=== PATIENT | male | born 1965 | race Two or more races ===

== ENCOUNTER 2024-11-06 12:39 | Inpatient (IN) | payer MEDICAID, OTHER ==
[~2024-11-06] VITALS: Ht 170.2 cm; Wt 83.2 kg
--- NOTE | 2024-11-06 12:51 | ECG ---
[facility] Test Date: 2024-11-06 Test Time: 12:44:38 Pat Name: JUAN F REY Department: ER Room: 0289T Gender: M [employer]: GP : 1965 Requested By: VINAYAK BROWN Order Number: [id number] Reading MD: Melquiades Duval Measurements Intervals [place] Rate: 124 P: 0 IL: 0 QRS: -26 QRSD: 91 T: 50 QT: 330 QTc: 474 Interpretive Statements Atrial fibrillation Inferior infarct, old Electronically Signed On 11-07-2024 18:25:11 PST by Melquiades Duval Please click the below link to view image of tracing.
--- NOTE | 2024-11-06 13:32 | DVH ---
AP portable chest HISTORY: sob Comparison: None FINDINGS: Heart size is borderline. Aorta is tortuous. No infiltrates or effusions. Degenerative ch anges in the thoracic spine IMPRESSION: 1. No acute cardiopulmonary pathology
--- NOTE | 2024-11-06 13:44 | ED.PDOC ---
History of Present Illness HPI Comments 59 Y M JANETH, presents to the ED with CC of generalized weakness. Per EMS, patient has been experiencing generalized weakness x3 days with associated symptoms of SOB and N/V/D. Patient states, that he is currently having sharp chest pain; per EMS patient was in AFIB in route and 1L bolus was given. Patient denies fever, chills, body aches, or cough. Chief Complaint: General Weakness Time Seen by MD: 13:10 Primary Care Provider: NONE Reviewed Notes: Nurses Notes, Medications, Allergies Allergies: Coded Allergies: NO KNOWN ALLERGIES (Unverified , 11/06/24) Information Source: Patient Mode of Arrival: EMS Severity: Moderate Timing: Days Duration: Since onset Prehospital treatment: None Past Medical History PAST MEDICAL HISTORY: DM Surgical History: Denies all surgeries Family History Family History: Unknown Social History Smoker: Non-Smoker Alcohol: Denies ETOH Use Drugs: Denies Drug Use Lives In: Assisted Care Constitutional: denies: chills, diaphoresis, fatigue, fever, malaise, sweats, w eakness, others EENTM: denies: blurred vision, double vision, ear bleeding, ear discharge, ear drainage, ear pain, ear ringing, eye pain, eye redness, hearing loss, mouth pain, mouth swelling, nasal discharge, nose bleeding, nose congestion, nose pain, photophobia, tearing, throat pain, throat swelling, voice changes, others Respiratory: reports: shortness of breath; denies: cough, hemoptysis, orthopnea, SOB at rest, SOB with excertion, stridor, wheezing, others Cardiovascular: reports: chest pain; denies: dizzy spells, diaphoresis, Dyspnea on exertion, edema, irregular heart beat, left arm pain, lightheadedness, palpitations, PND, syncope, others Gastrointestinal: reports: abdominal pain; denies: abdomen distended, blood streaked bowels, constipated, diarrhea, dysphagia, difficulty swallowing, hematemesis, melena, nausea, poor appetite, poor fluid intake, rectal bleeding, rectal pain, vomiting, others Genitourinary: denies: burning, dysuria, flank pain, frequency, hematuria, incontinence, penile discharge, penile sore, pain, testicle pain, testicle swelling, urgency, others Neurological: denies: dizziness, fainting, headache, left sided numbness, left sided weakness, numbness, paresthesia, pre-existing deficit, right sided numbness, right sided weakness, seizure, speech problems, tingling, tremors, weakness, others Musculoskeletal: denies: back pain, gout, joint pain, joint swelling, muscle pain, muscle stiffness, neck pain, others Integumetry: denies: bruises, change in color, change in hair/nails, dryness, laceration, lesions, lumps, rash, wounds, others Allergic/Immunocompromised: denies: Difficulty Healing, Frequent Infections, Hives, Itching, others Hematologic/Lymphatic: denies: anemia, blood clots, easy bleeding, easy bruising, swollen glands, others Endocrine: denies: excessive hunger, excessive sweating, excessive thirst, excessive urination, flushing, intolerance to cold, intolerance to heat, unexplained weight gain, unexplained weight loss, others Psychiatric: denies: anxiety, bipolar disorder, depression, hopeless, panic disorder, schizophrenia, sleepless, suicidal, others All Other Systems: Reviewed and Negative Physical Exam General Appearance: Moderate Distress, Normal HEENT: Normal ENT Inspection, Pharynx Normal, TMs Normal Neck: Full Range of Motion, Non-Tender, Normal, Normal Inspection Respiratory: Chest Non-Tender, Lungs Clear, No Accessory Muscle Use, No Respiratory Distress, Normal Breath Sounds Cardiovascular: Irregular, No Edema, No JVD, No Murmur, No Gallop, Normal Peripheral Pulses, Tachycardia Breast Exam: Deferred Gastrointestinal: No Organomegaly, Non Tender, No Pulsatile Mass, Normal Bowel Sounds, Soft Genitalia: Deferred Pelvic: Deferred Rectal: Deferred Extremities: No calf tenderness, Normal capillary refill, Normal inspection, Normal range of motion, Non-tender, No pedal edema Musculoskeletal : Apperance: Normal Neurologic: Alert, key attendant II-XII nml as Tested, No Motor Deficits, Normal Affect, Normal Mood, No Sensory Deficits Cerebellar Function: NOT DONE Reflexes: NOT DONE Skin: Dry, Normal Color, Warm Peripheral Pulses: 3+ Radial (R), 3+ Radial (L) Lymphatic: No Adenopathy Was a procedure done? Was a procedure done?: No Differential Dx Considerations may include: FAILURE TO THRIVE, SYNCOPAL EPISODE, X-Ray, Labs, Meds, VS Vital Signs Date Time Temp Pulse Resp B/P (MAP) Pulse Ox O2 Delivery O2 Flow Rate FiO2 1/6/25 12:44 124 11/06/24 12:44 97.9 108 18 123/69 (87) 89 Lab Test 11/06/24 13:34 Range/Units White Blood Count 13.8 H 4.4-10.8 10^3/uL Red Blood Count 5.08 4.5-5.90 10^6/uL Hemoglobin 15.9 13.5-17.5 g/dL Hematocrit 47.6 41.0-53.0 % Mean Corpuscular Volume 93.7 80.0-100.0 fL Mean Corpuscular Hemoglobin 31.2 28.0-32.0 pg Mean Corpuscular Hemoglobin Concent 33.3 32.0-36.0 g/dL Red Cell Distribution Width 15.0 H 11.8-14.3 % Platelet Count 280 140-450 10^3/uL Mean Platelet Volume 7.6 6.9-10.8 fL Neutrophils (%) (Auto) 70.3 37.0-80.0 % Lymphocytes (%) (Auto) 20.4 10.0-50.0 % Monocytes (%) (Auto) 6.1 0.0-12.0 % Eosinophils (%) (Auto) 2.7 0.0-7.0 % Basophils (%) (Auto) 0.5 0.0-2.0 % Neutrophils # (Auto) 9.7 H 1.6-8.6 10 ^3/uL Lymphocytes # (Auto) 2.8 0.4-5.4 10 ^3/uL Monocytes # (Auto) 0.8 0-1.3 10 ^3/uL Eosinophils # (Auto) 0.4 0-0.8 10 ^3/uL Basophils # (Auto) 0.1 0-0.2 10 ^3/uL Nucleated Red Blood Cells 0.0 % Sodium Level 137 136-145 mmol/L Potassium Level 3.6 3.5-5.1 mmol/L Chloride Level 106 98-107 mmol/L Carbon Dioxide Level 21 20-31 mmol/L Anion Gap 10 5-15 Blood Urea Nitrogen 7 L 9-23 mg/dL Creatinine 1.29 0.700-1.30 mg/dL Glomerular Filtration Rate Calc 64 >90 mL/min BUN/Creatinine Ratio 5.4 L 10.0-20.0 Serum Glucose 104 74-106 mg/dL Calcium Level 10.3 8.7-10.4 mg/dL Troponin I High Sensitivity < 3 L </=54 ng/L [address] [address] Ph: [phone] DIAGNOSTIC IMAGING Diagnostic Imaging Report : [id number] Signed PATIENT: JUAN F REY ACCT: [id number] UNIT: [id number] : 1965 LOC: ER ROOM / BED: / AGE / SEX: 59 / M ADM STATUS: REG ER SERVICE 1255 ORDERING PHYSICIAN: VINAYAK BROWN MD PROCEDURE(s): CXRP - CHEST PORTABLE REASON: sob ORDER NUMBER(s): [id number], ACCESSION NUMBER(s): [id number] AP portable chest HISTORY: sob Comparison: None FINDINGS: Heart size is borderline. Aorta is tortuous. No infiltrates or effusions. Degenerative changes in the thoracic spine IMPRESSION: 1. No acute cardiopulmonary pathology ATED BY: ESVIN KEYES MD DICTATED DATE/TIME: 11/06/24 1330 SIGNED BY: ESVIN KEYES MD SIGNED DATE/TIME: 11/06/24 133 CC: Patient alert. Complaining of chest pain. EKG shows atrial fibrillation. Vitals stable. Answering all questions. Continues to have chest pain. Was given aspirin. Cardiac marker within normal limits. Saturation was on the low side. Was placed on oxygen. Explained to the patient. Continue cardiac monitoring. Time of 1ST Reevaluation: 13:40 Reevaluation 1ST: Unchanged Patient Education/Counseling: Diagnosis, Treatment Family Education/Counseling: No Family Present Departure 1 Departure Time of Disposition: 16:19 Impression: Primary Impression: Chest pain of unknown etiology Additional Impression: Atrial fibrillation Qualified Codes: I48.0 - Paroxysmal atrial fibrillation Disposition: ADMITTED INPATIENT Admit to: Med Surg Condition: Guarded Critical Care Note Critical Care Time?: Yes (45 min-critical care time only) Stability Stability form required: No Heart Score Heart Score: Heart Score Response (Comments) Value History Slightly Suspicious 0 EKG Normal 0 Age 45-64 1 Risk Factors >3 or Hx ASHD 2 Troponin Normal limit 0 Total 3 I personally scribed for VINAYAK BROWN MD ([email or web address]) on 11/06/24 at 13:44. Electronically submitted by Christin Sharp [email or web address]). I personally scribed for VINAYAK BROWN MD ([email or web address]) on 11/06/24 at 13:58. Electronically submitted by Christin Sharp ([email or web address]). I personally scribed for VINAYAK BROWN MD ([email or web address]) on 11/06/24 at 14:30. Electronically submitted by Christin Sharp ([email or web address]). VINAYAK BROWN MD Nov 06, 2024 13:44
[2024-11-06 14:18] LABS: Basophils # (auto) 0.1 10 ^3/uL (0-0.2); Basophils % (auto) 0.5 % (0.0-2.0); Eosinophils # (auto) 0.4 10 ^3/uL (0-0.8); Eosinophils % (auto) 2.7 % (0.0-7.0); Hematocrit 47.6 % (41.0-53.0); Hemoglobin 15.9 g/dL (13.5-17.5); Lymphocytes # (auto) 2.8 10 ^3/uL (0.4-5.4); Lymphocytes % (auto) 20.4 % (10.0-50.0); Mean Corpuscular Hemoglobin 31.2 pg (28.0-32.0); Mean Corpuscular Hgb Conc. 33.3 g/dL (32.0-36.0); Mean Corpuscular Volume 93.7 fL (80.0-100.0); Monocytes # (auto) 0.8 10 ^3/uL (0-1.3); Monocytes % (auto) 6.1 % (0.0-12.0); Neutrophils # (auto) 9.7 10 ^3/uL (1.6-8.6); Neutrophils % (auto) 70.3 % (37.0-80.0); Platelet Count (auto) 280 10^3/uL (140-450); Red Blood Cells 5.08 10^6/uL (4.5-5.90); White Blood Cell 13.8 10^3/uL (4.4-10.8)
[2024-11-06 14:24] LABS: Chloride 106 mmol/L (98-107); Potassium 3.6 mmol/L (3.5-5.1); Sodium 137 mmol/L (136-145)
[2024-11-06 14:25] LABS: Anion Gap 10 (5-15); Calcium 10.3 mg/dL (8.7-10.4); Carbon Dioxide 21 mmol/L (20-31)
[2024-11-06 14:30] LABS: BUN/Creatinine Ratio 5.4 (10.0-20.0); Glucose 104 mg/dL (74-106)
[2024-11-06 14:33] LABS: Blood Urea Nitrogen 7 mg/dL (9-23)
[2024-11-06] MEDS ORDERED: MORPHINE SULFATE INJ 2 MG/ml SYRG IV PRN (19:30)
[2024-11-06] MEDS ORDERED: NITROGLYCERIN 0.4 MG SL TAB SL PRN (19:30)
[2024-11-06] MEDS ORDERED: TEMAZEPAM 15 MG CAP PO PRN (19:30)
[2024-11-06] MEDS ORDERED: ONDANSETRON HCL 4 MG/2 ML VIAL IV PRN (19:30)
[2024-11-06] MEDS: ASPirin 325 MG TAB PO ONE (20:54)
[2024-11-06] MEDS: dilTIAZem 25 MG/5 ML VIAL IV ONE (20:55)
--- NOTE | 2024-11-06 21:45 | DVH ---
Exam: CT CT AB PEL WO CON-NO ORAL OR IV History: MD order Comparison Study: None available at time of dictation. TECHNIQUE: Multidetector CT of the abdomen and pelvis without contrast. Axial, coronal and sagittal m ultiplanar reformats were obtained from the axial data set by the technologist. Radiation Dose Information: CT Dose: CTDI volume is 13.35 mGy. Dose-length product is 671.28 mGy*cm FINDINGS: The lung bases are clear. Partially visualized heart is normal in size. Trace pericardial effusion. Mild hepatomegaly. Otherwise, liver, spleen, and adrenal glands unremarkable. Possible sludge or sma ll stones within the gallbladder. Otherwise, the gallbladder is unremarkable. Questionable minimal f at stranding adjacent to the pancreatic head. Kidneys, and ureters are unremarkable. Anterior asymmetric wall thickening of the urinary bladder. Pr ostate measures 3 x 4.4 x 3.1 cm with calcifications. Mild wall thickening of the distal esophagus. Mild wall thickening of the stomach and duodenum. The r emainder of the small bowel loops unremarkable. Appendix is unremarkable. There is liquid stool withi n the colon. No evidence of aortic aneurysm. Mild atherosclerotic calcification of the aorta. No significant lymphadenopathy. Small fat containing umbilical hernia with small fat containing left inguinal hernia. No destructive osseous lesions noted. Diffuse demineralization. IMPRESSION: Questionable minimal fat stranding adjacent to the pancreatic head. Recommend correlation with lipas e Asymmetric anterior urinary bladder wall thickening correlate with urinalysis for possible cystitis w ith neoplasm not excluded. Mild wall thickening of the distal esophagus, stomach and duodenal which may represent esophagitis an d gastroduodenitis respectively. Liquid stool within the colon. Correlate for diarrheal state. Possible sludge/small gallstones within the gallbladder with no CT evidence of acute cholecystitis. Additional findings as above.
[2024-11-07] MEDS: ATORVASTATIN 20 MG TAB PO SCH (01:14)
[2024-11-07] MEDS ORDERED: DEXTROSE (50%) 50ML SYRG IV PRN (03:45)
--- NOTE | 2024-11-07 03:48 | DVHHP2 ---
History of Present Illness Reason for Visit: Chest pain History of Present Illness 51-year-old male presents for evaluation of chest pain. He reports a three day history of generalized weakness with associated nausea, vomiting and for the past one day he developed left-sided sharp nonradiating chest pain. Denies shortness or breath. No cough or fever. No other acute complaints reported. Past Medical History Diabetes mellitus, atrial fibrillation Past Surgical History Denies Family History Noncontributory Smoke: No ALCOHOL: none Drugs: None Lives: with Family Review of Systems Review of Systems Review of systems are currently negative otherwise addressed in HPI. Allergies: Coded Allergies: NO KNOWN ALLERGIES (Unverified , 11/06/24) Medications Current Medications Medications Dose Ordered Sig/Chinedu Route Start Time Stop Time Status Last Admin Dose Admin Aspirin 81 mg DAILY PO 11/07/24 10:00 Atorvastatin Calcium 10 mg HS PO 11/06/24 22:00 11/07/24 01:14 10 MG Temazepam 15 mg QHSP PRN PO 11/06/24 19:30 Ondansetron HCl 4 mg Q4HP PRN IV 11/06/24 19:30 Enoxaparin Sodium 40 mg DAILY SC 11/07/24 10:00 Acetaminophen 650 mg Q6HP PRN PO 11/06/24 19:30 Nitroglycerin 0.4 mg Q5MINP PRN SL 11/06/24 19:30 Morphine Sulfate 2 mg Q30M PRN IV 11/06/24 19:30 Exam Vital Signs Vital Signs Date Time Temp Pulse Resp B/P (MAP) Pulse Ox O2 Delivery O2 Flow Rate FiO2 11/06/24 12:44 124 11/06/24 12:44 97.9 18 123/69 (87) 89 Exam Gen: 59-year-old in mild distress Skin: Warm, dry, normal color and texture, no rash. HEENT: Normocephalic atraumatic, mucous membranes moist and pink. Neck: Cervical and supraclavicular nodes normal without enlargement, trachea is midline, thyroid gland is normal without masses. Pulmonary: Clear to auscultation and percussion bilaterally. Cardiac: Regular rate and rhythm. No murmur Abdomen: Soft, nontender, nondistended, bowel sounds present all 4 quadrants, no guarding, no rigidity, no organomegaly. Extremities: No cyanosis, clubbing, no edema Neuro: Cranial nerves II through XII grossly intact, normal affect and speech, no focal motor deficits. Labs/Xrays ORDERING PHYSICIAN: ABBIE ALFREDO PROCEDURE(s): ABPL - CT AB PEL WO CON-NO ORAL OR IV REASON: order ORDER NUMBER(s): [id number], ACCESSION NUMBER(s): [id number] Exam: CT CT AB PEL WO CON-NO ORAL OR IV History: order Comparison Study: None available at time of dictation. TECHNIQUE: Multidetector CT of the abdomen and pelvis without contrast. Axial, coronal and sagittal multiplanar reformats were obtained from the axial data set by the technologist. Radiation Dose Information: CT Dose: CTDI volume is 13.35 mGy. Dose-length product is 671.28 mGy*cm FINDINGS: The lung bases are clear. Partially visualized heart is normal in size. Trace pericardial effusion. Mild hepatomegaly. Otherwise, liver, spleen, and adrenal glands unremarkable. Possible sludge or small stones within the gallbladder. Otherwise, the gallbladder is unremarkable. Questionable minimal fat stranding adjacent to the pancreatic head. Kidneys, and ureters are unremarkable. Anterior asymmetric wall thickening of the urinary bladder. Prostate measures 3 x 4.4 x 3.1 cm with calcifications. Mild wall thickening of the distal esophagus. Mild wall thickening of the stomach and duodenum. The remainder of the small bowel loops unremarkable. Appendix is unremarkable. There is liquid stool within the colon. No evidence of aortic aneurysm. Mild atherosclerotic calcification of the aorta. No significant lymphadenopathy. Small fat containing umbilical hernia with small fat containing left inguinal hernia. No destructive osseous lesions noted. Diffuse demineralization. IMPRESSION: Questionable minimal fat stranding adjacent to the pancreatic head. Recommend correlation with lipase Asymmetric anterior urinary bladder wall thickening correlate with urinalysis for possible cystitis with neoplasm not excluded. Mild wall thickening of the distal esophagus, stomach and duodenal which may represent esophagitis and gastroduodenitis respectively. Liquid stool within the colon. Correlate for diarrheal state. Possible sludge/small gallstones within the gallbladder with no CT evidence of acute cholecystitis. Additional findings as above. Labs Test 11/06/24 19:43 11/06/24 13:34 Range/Units Troponin I High Sensitivity < 3 L </=54 ng/L Lipase 34 12-53 U/L White Blood Count 13.8 H 4.4-10.8 10^3/uL Red Blood Count 5.08 4.5-5.90 10^6/uL Hemoglobin 15.9 13.5-17.5 g/dL Hematocrit 47.6 41.0-53.0 % Mean Corpuscular Volume 93.7 80.0-100.0 fL Mean Corpuscular Hemoglobin 31.2 28.0-32.0 pg Mean Corpuscular Hemoglobin Concent 33.3 32.0-36.0 g/dL Red Cell Distribution Width 15.0 H 11.8-14.3 % Platelet Count 280 140-450 10^3/uL Mean Platelet Volume 7.6 6.9-10.8 fL Neutrophils (%) (Auto) 70.3 37.0-80.0 % Lymphocytes (%) (Auto) 20.4 10.0-50.0 % Monocytes (%) (Auto) 6.1 0.0-12.0 % Eosinophils (%) (Auto) 2.7 0.0-7.0 % Basophils (%) (Auto) 0.5 0.0-2.0 % Neutrophils # (Auto) 9.7 H 1.6-8.6 10 ^3/uL Lymphocytes # (Auto) 2.8 0.4-5.4 10 ^3/uL Monocytes # (Auto) 0.8 0-1.3 10 ^3/uL Eosinophils # (Auto) 0.4 0-0.8 10 ^3/uL Basophils # (Auto) 0.1 0-0.2 10 ^3/uL Nucleated Red Blood Cells 0.0 % Sodium Level 137 136-145 mmol/L Potassium Level 3.6 3.5-5.1 mmol/L Chloride Level 106 98-107 mmol/L Carbon Dioxide Level 21 20-31 mmol/L Anion Gap 10 5-15 Blood Urea Nitrogen 7 L 9-23 mg/dL Creatinine 1.29 0.700-1.30 mg/dL Glomerular Filtration Rate Calc 64 >90 mL/min BUN/Creatinine Ratio 5.4 L 10.0-20.0 Serum Glucose 104 74-106 mg/dL Calcium Level 10.3 8.7-10.4 mg/dL Assessment/Plan Assessment/Plan Assessment Chest pain, etiology undetermined Atrial fibrillation Leukocytosis Abdominal pain Plan Admit the patient to telemetry to the hospitalist Echocardiogram pending Resume home medications Continue treatment per orders. Plan discussed with: Patient My Orders Orders - ABBIE ALFREDO Procedure Category Date Status Time Aspirin Tablet PHA 11/07/24 In Process 10:00 Atorvastatin (Lipitor) PHA 11/06/24 In Process 22:00 * Cardiology Consult CONS 11/06/24 Transmitted 19:17 Basic Metabolic Panel LAB 11/07/24 Logged 04:00 Admit ADMIT 11/06/24 Transmitted 19:17 Temazepam (Restoril) PHA 11/06/24 In Process 19:30 Ondansetron Hcl PHA 11/06/24 In Process (Zofran) 19:30 Enoxaparin Sodium PHA 11/07/24 In Process (Lovenox) 10:00 Cardiac DIET 11/07/24 Transmitted Diet-2gna,Lofat,Lochol Breakfast Echo 2d Mode Cardiac US 11/06/24 Logged DOP 19:17 Condition: Fair GENIA 11/06/24 In Process 19:17 Acetaminophen Tablet PHA 11/06/24 In Process (Tylenol Tablet) 19:30 Bedrest With Bathroom GENIA 11/06/24 In Process Privileg 19:17 Nitroglycerin PHA 11/06/24 In Process Sublingual (Ntrostat 19:30 Morphine Sulfate PHA 11/06/24 In Process Injection 19:30 Stat Ekg For Chest GENIA 11/06/24 In Process Pain 19:17 Notify Md Of Changes GENIA 11/06/24 In Process From Base 19:17 Practice Billing Associate For [facility] 11/06/24 In Process 24 Hours 19:17 Emergency Dysrhythmia [facility] 11/06/24 In Process Protocol 19:17 Rhythm Strips Once [facility] 11/06/24 In Process Every Shift 19:17 Oxygen By Nasal RT 11/06/24 Transmitted Cannula 19:17 Ct Ab Pel Wo Con-No CT 11/06/24 Resulted Oral Or Iv 20:49 Date of Service: Nov 06, 2024 Billing Provider: ABBIE ALFREDO Common Visit Codes: [id number] INP/OBS CARE (HIGH) ABBIE ALFREDO Nov 07, 2024 03:48
[2024-11-07 06:28] LABS: Anion Gap 11 (5-15); Carbon Dioxide 21 mmol/L (20-31); Chloride 105 mmol/L (98-107); Sodium 137 mmol/L (136-145)
[2024-11-07 06:34] LABS: BUN/Creatinine Ratio 8.3 (10.0-20.0); Blood Urea Nitrogen 9 mg/dL (9-23)
[2024-11-07 06:35] LABS: Calcium 10.8 mg/dL (8.7-10.4); Glucose 113 mg/dL (74-106); Potassium 3.3 mmol/L (3.5-5.1)
[2024-11-07] MEDS: ACCU-CHEK COMFORT CURVE STRIP VI SCH (07:00)
[2024-11-07 07:30] VITALS: PULSE 108; RESP 17; O2SAT 97
[2024-11-07] MEDS: InsuLIN REG 1unit/0.01ml Soln (100units/ml) SC SCH (08:16)
--- NOTE | 2024-11-07 09:50 | DVHINCON2 ---
Date Seen: Nov 07, 2024 Referring Physician HALINA Cruz Reason for Consultation Chest pain, AFib History of Present Illness This is a 59-year-old male patient who presents to the emergency room with multiple chief complaints of generalized weakness, decreased appetite, diarrhea, shortness of breath, and chest pain. The patient reports that the first symptom of decreased appetite began five days ago. He reported that he noticed no interest in food about five days ago followed by diarrhea and generalized weakness. Yesterday, the patient reports new onset chest pain while moving. He reports he is new to the area and was moving his personal belongings from [place] to [place], when he noticed the chest pain began. He describes the pain as unprovoked, sharp in nature, intermittent, left-sided and nonradiating. Associated symptoms include shortness of breath. The patient reports that the neighbor told him that he did not look good and decided to call EMS. Upon EMS arrival, the patient was noted to be in atrial fibrillation with rapid ventricular response. He was provided with a 1 L fluid bolus. Upon emergency room arrival, a twelve lead electrocardiogram was obtained and reveals atrial fibrillation with heart rate 124. Initial troponin level was negative. Significant past medical history includes atrial fibrillation (on Xarelto), hypertension, hyperlipidemia, type 2 diabetes mellitus, thyroid disease, asthma, and PTSD. The patient denies following up with a erp pm in the outpatient setting. Past Medical History Past medical history reviewed. No other significant than mentioned above. Past Surgical History Hernia repair Family History Family history reviewed. Social History Patient admits to vaping daily Patient denies any illicit drug use Patient denies any alcohol use Allergies: Coded Allergies: NO KNOWN ALLERGIES (Unverified , 11/06/24) Current Medications Current Medications Medications (Trade) Dose Ordered Sig/Chinedu Route PRN Reason Start Time Stop Time Status Last Admin Aspirin 81 mg DAILY PO 11/07/24 10:00 Atorvastatin Calcium (Lipitor) 10 mg HS PO 11/06/24 22:00 11/07/24 01:14 Temazepam (Restoril) 15 mg QHSP PRN PO FOR INSOMNIA 11/06/24 19:30 Ondansetron HCl (Zofran) 4 mg Q4HP PRN IV NAUSEA / VOMITING 11/06/24 19:30 Enoxaparin Sodium (Lovenox) 40 mg DAILY SC 11/07/24 10:00 Acetaminophen (Tylenol Tablet) 650 mg Q6HP PRN PO PAIN SCALE 1-3 OR TEMP>100.4 11/06/24 19:30 Nitroglycerin (Ntrostat Sublingual) 0.4 mg Q5MINP PRN SL FOR CHEST PAIN 11/06/24 19:30 Morphine Sulfate 2 mg Q30M PRN IV FOR CHEST PAIN 11/06/24 19:30 Diltiazem HCl (Cardizem LA Capsule) 180 mg DAILY PO 11/07/24 10:00 Diagnostic Test (Pha) (Accu-Chek Comfort Curve T) 1 strip ACHS 11/07/24 07:00 11/07/24 07:00 Insulin Human Regular (InsuLIN R) ACHS SC 11/07/24 07:00 11/07/24 08:16 Dextrose 50 ml UD PRN IV Blood Sugar LESS THAN 60 11/07/24 03:45 Ceftriaxone Sodium 50 ml @ 100 mls/hr DAILY@09 IV 11/07/24 09:00 Review of Systems Constitutional: Generalized weakness Ears, Nose, & Throat: No symptom reported Eyes: No symptom reported Neurological: No symptoms reported Pulmonary/Respiratory: Shortness of breath Cardiovascular: Chest pain Gastrointestinal: Diarrhea Genitourinary: No symptom reported Musculoskeletal: No symptom reported Skin: No symptom reported Psychiatric: No symptom reported Endocrine: No symptom reported Hematologic/Lymphatic: No symptom reported Vital Signs Vital Signs Date Time Temp Pulse Resp B/P (MAP) Pulse Ox O2 Delivery O2 Flow Rate FiO2 11/07/24 08:35 97.9 108 17 163/89 (113) 97 97.9 11/07/24 07:30 Room Air* 0 21 Physical Exam General Appearance: Cooperative. Well-developed. Well-nourished. No acute distress. Pulmonary/Respiratory: Clear, bilateral breaths sounds. Cardiovascular/Chest: Irregular rate and rhythm. Peripheral Pulses: 2+ Radial (R). 2+ Radial (L). 2+ Pedal (R). 2+ Pedal (L) Abdominal Exam: Normal bowel sounds. Ankle Exam: Trace bilateral ankle edema Lower extremities: Trace nonpitting bilateral lower extremity edema Neuro/Mental Status: A/OX4, coherent. Thoughts/Psych: Normal thought pattern. Appropriate mood and affect. Good judgm ent and insight. Appearance: No acute distress. Skin Exam: Normal inspection. Normal color. Warm and dry. Labs/Diagnostic Data Labs Test 11/07/24 05:59 11/06/24 19:43 11/06/24 13:34 Range/Units Sodium Level 137 136-145 mmol/L Potassium Level 3.3 L 3.5-5.1 mmol/L Chloride Level 105 98-107 mmol/L Carbon Dioxide Level 21 20-31 mmol/L Anion Gap 11 5-15 Blood Urea Nitrogen 9 9-23 mg/dL Creatinine 1.08 0.700-1.30 mg/dL Glomerular Filtration Rate Calc 79 >90 mL/min BUN/Creatinine Ratio 8.3 L 10.0-20.0 Serum Glucose 113 H 74-106 mg/dL Calcium Level 10.8 H 8.7-10.4 mg/dL Troponin I High Sensitivity < 3 L </=54 ng/L Lipase 34 12-53 U/L White Blood Count 13.8 H 4.4-10.8 10^3/uL Red Blood Count 5.08 4.5-5.90 10^6/uL Hemoglobin 15.9 13.5-17.5 g/dL Hematocrit 47.6 41.0-53.0 % Mean Corpuscular Volume 93.7 80.0-100.0 fL Mean Corpuscular Hemoglobin 31.2 28.0-32.0 pg Mean Corpuscular Hemoglobin Concent 33.3 32.0-36.0 g/dL Red Cell Distribution Width 15.0 H 11.8-14.3 % Platelet Count 280 140-450 10^3/uL Mean Platelet Volume 7.6 6.9-10.8 fL Neutrophils (%) (Auto) 70.3 37.0-80.0 % Lymphocytes (%) (Auto) 20.4 10.0-50.0 % Monocytes (%) (Auto) 6.1 0.0-12.0 % Eosinophils (%) (Auto) 2.7 0.0-7.0 % Basophils (%) (Auto) 0.5 0.0-2.0 % Neutrophils # (Auto) 9.7 H 1.6-8.6 10 ^3/uL Lymphocytes # (Auto) 2.8 0.4-5.4 10 ^3/uL Monocytes # (Auto) 0.8 0-1.3 10 ^3/uL Eosinophils # (Auto) 0.4 0-0.8 10 ^3/uL Basophils # (Auto) 0.1 0-0.2 10 ^3/uL Nucleated Red Blood Cells 0.0 % Assessment Atrial fibrillation with a rapid ventricular response (on Xarelto) Rule out structural heart disease Hypertension Hyperlipidemia Hypokalemia Type 2 diabetes mellitus Thyroid disease Asthma Plan/Recommendation We will continue with the following plan/recommendations (Dr. Duval): * Echocardiogram to evaluate cardiac function * [id number] VASc score: 2 points, HAS-BLED: 1 point * Therapeutic Lovenox while inpatient, transition back to Xarelto when appropriate * Home dose diltiazem for rate control * BP control * Lipid-lowering agent * Monitor and replete electrolytes as needed, keep potassium greater than four and magnesium greater than two Case discussed with . Thank you for allowing us to care for this patient. Please call with any questions or concerns. Critical care time spent: 43 minutes This medical document was created using an electronic medical record system with voice recognition software and computerized dictation system. Although this document has been carefully reviewed, there might still be some phonetic and typographical errors. Occasional wrong-word or ``sound-alike substitutions may have occurred due to the inherent limitations of voice recognition software. These areas are purely typographical due to imperfections of the software programs and do not reflect any compromise in the patient's medical care. Please read the chart carefully and recognize, using context, where these substitutions have occurred. Plan discussed with: Patient NYHA Physical activity limitations: NA Date of Service: Nov 07, 2024 Billing Provider: IBRAHIMA ALAN Cardiology Common Codes: 69144-OGZPFMT INP/OBS CARE (High) Cardiology Consultation Codes: [id number] CONSULT <45MIN IBRAHIMA ALAN Nov 07, 2024 09:50
[2024-11-07] MEDS: cefTRIAXone 1GM/50ML D5W 50 ML IV SCH (09:57)
[2024-11-07 10:00] VITALS: PULSE 109; RESP 18; O2SAT 97
[2024-11-07] MEDS ORDERED: MAALOX PLUS or MAALOX 30 ML PO PRN (10:30)
[2024-11-07] MEDS: ASPirin 81 mg TAB PO SCH (10:46)
[2024-11-07] MEDS: dilTIAZem HCL 180MG ER CAP PO SCH (10:46)
[2024-11-07] MEDS: ENOXAPARIN SOD 40 MG/0.4 ML SYRINGE SC SCH (10:47)
[2024-11-07 11:22] LABS: Magnesium 1.7 mg/dL (1.6-2.6)
[2024-11-07] MEDS: POTASSIUM EFFERVESENT TAB 25 MEQ PO ONE (12:08)
[2024-11-07] MEDS: hydrOXYzine 25 MG TAB or CAP PO ONE (12:11)
[2024-11-07] MEDS: FAMOTIDINE 20 MG TAB PO ONE (12:12)
[2024-11-07] MEDS: clonazePAM 0.5 MG TAB PO ONE (12:13)
[2024-11-07] MEDS: SODIUM CHLORIDE 0.9% 500 ML IV ONE (12:14)
[2024-11-07 12:47] LABS: Amphetamine Screen, Urine Neg (NEGATIVE); Barbiturate Scree,Urine Neg (NEGATIVE); Benzodiazephine Screen, Urine Neg (NEGATIVE); Cannabinoid Screen, Urine Neg (NEGATIVE); Cocaine Screen, Urine Neg (NEGATIVE); Opiate Scree,Urine Neg (NEGATIVE); Phencyclidine Screen, Urine Neg (NEGATIVE)
[2024-11-07 15:05] LABS: Free T3 3.35 pg/mL (2.3-4.2); Free T4 (Free Thyroxine) 1.43 ng/dL (0.89-1.76)
--- NOTE | 2024-11-07 15:39 | DVHPN2 ---
Assessment/Plan Assessment/Plan Progress note Subjective 59 M with PTSD anxiety and afib on xarelto with 3 days of vomitting and diarrhea admitted for chest pain. Patient is dehydrated, reported eating questionable avocado prior to symptoms onset. Compliant with meds however no oral intake the past couple of days. Objective Physical exam Alert oriented x3 irregular, tachycardic clear breath sounds abdomen soft, mildly tender no LE edema Lab K 3.3 Ca 10.2 WBC 14 EKG old inferior infarct? Imaging cxr clear Assessment and plan Acute gastroenteritis, unknown etiology Afib with RVR 2/2 dehydration PTSD anxiety disorder hypokalemia hypercalcemia euthyroid sick vs new hypothyroidism iv bolus and maintenance replete lytes cardio consult appreciated c/w lovenox therapeutic resume home emds advance diet as tolerated stool studies pepcid, maalox Maintain potassium of 4, phosphate of 3 and magnesium of 2 Diet advance as tolerated DVT prophylaxis on lovenox therapeutic Plan discussed with: Patient My Orders Orders - DI JONES MD Procedure Category Date Status Time Hydroxyzine Oral PHA 11/07/24 In Process (Vistaril Oral) 10:30 Famotidine Tablet PHA 11/08/24 In Process (Pepcid Tablet) 10:00 Alum & Mag PHA 11/07/24 In Process Hydrox-Simethicone 10:30 Trazodone Hcl PHA 11/07/24 Verified (Desyrel) 22:00 Buspirone Hcl Tablet PHA 11/07/24 Verified (Buspar Tablet) 22:00 Date of Service: Nov 07, 2024 Billing Provider: DI JONES MD Common Visit Codes: [id number] INP/OBS CARE(HIGH) DI JONES MD Nov 07, 2024 15:39
[2024-11-07] MEDS ORDERED: LOPERAMIDE 1 mg/7.5ml ORAL soln PO PRN (17:00)
[2024-11-07] MEDS ORDERED: ACETAMINOPHEN 325 MG TAB PO PRN (17:00)
--- NOTE | 2024-11-07 17:15 | DVHSR ---
APPROVED REPORT EXAM: Two-dimensional and M-mode echocardiogram with Doppler and color Doppler. Blood Pressure: 163/89 mmHg INDICATION Chest Pain RISK FACTORS Height: 70, Weight: 190 DIMENSIONS LVDd3.6 (3.8-5.7cm)LA (2D)4.3 (1.9-4.0cm)Aortic Root (2.0-3.7cm) LVDs2.3 (2.5-4.0cm)LA (MM) (1.9-4.0cm)Aortic Cusp Exc (1.5-2.0cm) EF (%) 68.0 (55-70%)Rt. Atrium3.6 (1.9-4.0cm)Asc. Aorta cm Mitral Valve MitralMitral Stenosis E/A ratio0.02D MVAcm2 Aortic Valve Aortic ValveAortic Stenosis V10.85m/Kings Mean GR.3mmHg V21.04m/Kings Peak GR.4mmHg Other Information Technically limited study due to body habitus and high heart rate. Conclusion lvef 65% by visual estimate RV enlarged , normal function left atrium enlarged mild
[2024-11-07 17:46] VITALS: BP 105/84; PULSE 111; RESP 19; TEMP 98.1; O2SAT 98
[2024-11-07] MEDS: MAGNESIUM SULFATE 1GM/100ML 100 ML IV ONE (18:54)
[2024-11-07 20:00] VITALS: PULSE 120; PULSE 132; RESP 20; O2SAT 98
[2024-11-07] MEDS: ACETAMINOPHEN 325 MG TAB PO PRN (20:39)
[2024-11-07] MEDS: busPIRone HCL 10 MG TAB PO SCH (20:40)
[2024-11-07] MEDS: traZODone HCL 50 MG TAB PO SCH (20:40)
[2024-11-07] MEDS: ENOXAPARIN SOD 100 MG/1 ML SYRINGE SC SCH (20:42)
[2024-11-07 21:00] VITALS: BP 141/94; PULSE 120; RESP 20; TEMP 97.6; O2SAT 98
[2024-11-08] VITALS (9 sets, daily range): BP systolic 116–145; BP diastolic 73–97; PULSE 71–108; RESP 17–22; TEMP 97.4–98.5; O2SAT 96–99
[2024-11-08 07:28] LABS: Basophils # (auto) 0.1 10 ^3/uL (0-0.2); Basophils % (auto) 0.8 % (0.0-2.0); Eosinophils # (auto) 0.4 10 ^3/uL (0-0.8); Eosinophils % (auto) 4.3 % (0.0-7.0); Hematocrit 45.9 % (41.0-53.0); Hemoglobin 15.8 g/dL (13.5-17.5); Lymphocytes # (auto) 3.2 10 ^3/uL (0.4-5.4); Lymphocytes % (auto) 35.9 % (10.0-50.0); Mean Corpuscular Hemoglobin 32.3 pg (28.0-32.0); Mean Corpuscular Hgb Conc. 34.5 g/dL (32.0-36.0); Mean Corpuscular Volume 93.5 fL (80.0-100.0); Monocytes # (auto) 0.6 10 ^3/uL (0-1.3); Monocytes % (auto) 6.9 % (0.0-12.0); Neutrophils # (auto) 4.7 10 ^3/uL (1.6-8.6); Neutrophils % (auto) 52.1 % (37.0-80.0); Nucleated Red Blood Cells % 0.1 %; Platelet Count (auto) 244 10^3/uL (140-450); Red Blood Cells 4.91 10^6/uL (4.5-5.90); Red Cell Distribution Width 14.9 % (11.8-14.3); White Blood Cell 8.9 10^3/uL (4.4-10.8)
[2024-11-08 07:41] LABS: Potassium 3.5 mmol/L (3.5-5.1); Sodium 142 mmol/L (136-145)
[2024-11-08 07:42] LABS: Anion Gap 8 (5-15); Calcium 9.9 mg/dL (8.7-10.4); Carbon Dioxide 25 mmol/L (20-31); Chloride 109 mmol/L (98-107)
[2024-11-08 07:47] LABS: Blood Urea Nitrogen 11 mg/dL (9-23); Glucose 104 mg/dL (74-106)
[2024-11-08 07:49] LABS: Phosphorus 3.3 mg/dL (2.4-5.1)
[2024-11-08] MEDS: clonazePAM 0.5 MG TAB PO ONE (08:54)
[2024-11-08] MEDS: FAMOTIDINE 20 MG TAB PO SCH (08:55)
[2024-11-08] MEDS: POTASSIUM EFFERVESENT TAB 25 MEQ PO ONE (10:36)
[2024-11-08] MEDS: cefTRIAXone 1GM/50ML D5W 50 ML IV ONE (10:36)
[2024-11-08] MEDS: hydrOXYzine 25 MG TAB or CAP PO PRN (14:27)
--- NOTE | 2024-11-08 15:54 | DVHPN2 ---
Assessment/Plan Assessment/Plan Progress note Subjective 59 M with PTSD anxiety and afib on xarelto with 3 days of vomitting and diarrhea admitted for chest pain. Found to be in afib RVR. Patient is dehydrated, reported eating questionable avocado prior to symptoms onset. Compliant with meds however no oral intake the past couple of days. Seen today during rounds, rate controlled, formed but still frequent BM, stool wbc positive, culture negative Objective Physical exam Alert oriented x3 irregular, tachycardic clear breath sounds abdomen soft, mildly tender no LE edema Lab K 3.3 Ca 10.2 WBC 14 EKG old inferior infarct? Imaging cxr clear Assessment and plan Acute gastroenteritis, unknown etiology Afib with RVR 2/2 dehydration PTSD anxiety disorder hypokalemia hypercalcemia euthyroid sick vs new hypothyroidism iv bolus and maintenance replete lytes cardio consult appreciated c/w lovenox therapeutic resume home emds advance diet as tolerated stool studies pepcid, maalox Maintain potassium of 4, phosphate of 3 and magnesium of 2 Diet advance as tolerated DVT prophylaxis on lovenox therapeutic Plan discussed with: Patient My Orders Orders - DI JONES MD Procedure Category Date Status Time * Dietary Consult CONS 11/08/24 Transmitted 08:18 C-Diff: Collect Next GENIA 11/08/24 In Process Specimen 08:22 Full Liq Diet DIET 11/08/24 Transmitted Lunch Buspirone Hcl Tablet PHA 11/08/24 In Process (Buspar Tablet) 22:00 Date of Service: Nov 08, 2024 Billing Provider: DI JONES MD Common Visit Codes: [id number] INP/OBS CARE(HIGH) DI JONES MD Nov 08, 2024 15:54
--- NOTE | 2024-11-08 16:40 | DVHPN2 ---
Consult Progress Note Subjective Other Systems: The patient remains in atrial fibrillation now with controlled rate on monitoring tech. Objective vital signs Vital Sign Date Time Temp Pulse Resp B/P (MAP) Pulse Ox O2 Delivery O2 Flow Rate FiO2 11/08/24 11:56 97.4 93 17 119/86 (97) 99 97.4 11/08/24 08:00 Room Air* 0 21 Total Intake and Output 11/07/24 11/07/24 11/08/24 15:00 23:00 07:00 Intake Total 100 ml 900 ml Output Total 750 ml Balance 100 ml 150 ml medications Current Medications Medications Dose Ordered Sig/Chinedu Route Start Time Stop Time Status Last Admin Dose Admin Aspirin 81 mg DAILY PO 11/07/24 10:00 11/08/24 08:55 81 MG Atorvastatin Calcium 10 mg HS PO 11/06/24 22:00 11/07/24 20:40 10 MG Ondansetron HCl 4 mg Q4HP PRN IV 11/06/24 19:30 Acetaminophen 650 mg Q6HP PRN PO 11/06/24 19:30 11/08/24 05:32 650 MG Diltiazem HCl 180 mg DAILY PO 11/07/24 10:00 11/08/24 08:55 180 MG Diagnostic Test (Pha) 1 strip ACHS 11/07/24 07:00 11/08/24 11:33 1 STRIP Insulin Human Regular ACHS SC 11/07/24 07:00 11/07/24 20:47 3 UNITS Dextrose 50 ml UD PRN IV 11/07/24 03:45 Hydroxyzine Pamoate 50 mg Q6HP PRN PO 11/07/24 10:30 11/08/24 14:27 50 MG Famotidine 20 mg DAILY PO 11/08/24 10:00 11/08/24 08:55 20 MG Al Hydrox/Mg Hydrox/Simethicone 30 ml Q8HP PRN PO 11/07/24 10:30 Enoxaparin Sodium 90 mg Q12HR SC 11/07/24 22:00 11/08/24 08:57 90 MG Trazodone HCl 50 mg HS PO 11/07/24 22:00 11/07/24 20:40 50 MG Buspirone HCl 10 mg Q12HR PO 11/08/24 22:00 Clonazepam 1 mg Q12HP PRN PO 11/08/24 16:00 Examination: GENERAL:Normal, LUNGS:Normal, CVS:Normal, NEURO:Normal laboratory and microbiology Laboratory Tests 11/08/24 06:33 Test 11/08/24 06:33 Range/Units Serum Glucose 104 74-106 mg/dL Problem List/Assessment/Plan Problem List/Assessment/Plan Atrial fibrillation with a rapid ventricular response, now with controlled rate (on Xarelto) Hypertension Hyperlipidemia Hypokalemia, resolved Type 2 diabetes mellitus Thyroid disease Asthma PTSD Plan/Recommendation (Dr. Lozano): * Echocardiogram reveals EF 65% with mildly enlarged left atrium * [id number] VASc score: 2 points, HAS-BLED: 1 point * Therapeutic Lovenox while inpatient, transition back to Xarelto when appropriate * Home dose diltiazem for rate control * BP control * Lipid-lowering agent * Monitor and replete electrolytes as needed, keep potassium greater than four and magnesium greater than two Patient seen and examined at bedside with . Patient remains in atrial fibrillation with controlled rate, denies any cardiac symptoms such as chest pain, palpitations, or shortness of breath. Patient appears very anxious and is requesting his psych medications, we will defer to primary care team. There is no further inpatient cardiac workup indicated at this time. Patient to follow up with Cardiology in the outpatient setting in 1-2 weeks post discharge. Thank you for allowing us to care for this patient. Please call with any questions or concerns. This medical document was created using an electronic medical record system with voice recognition software and computerized dictation system. Although this document has been carefully reviewed, there might still be some phonetic and typographical errors. Occasional wrong-word or ``sound-alike substitutions may have occurred due to the inherent limitations of voice recognition software. These areas are purely typographical due to imperfections of the software programs and do not reflect any compromise in the patient's medical care. Please read the chart carefully and recognize, using context, where these substitutions have occurred. Plan discussed with: Patient Date of Service: Nov 08, 2024 Billing Provider: MERCEDES LOZANO MD Common Visit Codes: [id number] INP/OBS CARE(HIGH) IBRAHIMA ALAN [facility] Nov 08, 2024 16:40
[2024-11-08] MEDS: busPIRone HCL 10 MG TAB PO SCH (21:09)
[2024-11-08] MEDS: clonazePAM 0.5 MG TAB PO PRN (21:10)
[2024-11-09 01:00] VITALS: BP 114/86; PULSE 83; RESP 19; TEMP 97.8; O2SAT 97
[2024-11-09 05:00] VITALS: BP 129/83; PULSE 72; RESP 19; TEMP 97.3; O2SAT 99
[2024-11-09 07:36] LABS: Anion Gap 10 (5-15); Calcium 10.4 mg/dL (8.7-10.4); Carbon Dioxide 21 mmol/L (20-31); Sodium 140 mmol/L (136-145)
[2024-11-09 07:37] LABS: Chloride 109 mmol/L (98-107)
[2024-11-09 07:42] LABS: BUN/Creatinine Ratio 7.9 (10.0-20.0); Magnesium 2.1 mg/dL (1.6-2.6)
[2024-11-09 07:49] LABS: Blood Urea Nitrogen 7 mg/dL (9-23); Glucose 112 mg/dL (74-106)
[2024-11-09 08:00] VITALS: PULSE 74; PULSE 98; RESP 19; O2SAT 94
[2024-11-09 08:45] VITALS: BP 132/95; PULSE 74; RESP 19; TEMP 97.5; O2SAT 94
[2024-11-09] MEDS ORDERED: DILT-102 PO ×2 (12:03→12:20)
[2024-11-09] MEDS ORDERED: TRAZ-227 PO ×2 (12:03→12:20)
[2024-11-09] MEDS ORDERED: ASPI-325 PO ×2 (12:03→12:20)
[2024-11-09] MEDS ORDERED: RIVA20TA PO ×2 (12:03→12:20)
[2024-11-09] MEDS ORDERED: FAMO-12 PO ×2 (12:03→12:20)
[2024-11-09] MEDS ORDERED: CLON0.5T3 PO ×2 (12:03→12:20)
[2024-11-09] MEDS ORDERED: ATOR20TA50 PO ×2 (12:03→12:20)
[2024-11-09] MEDS ORDERED: HYDR1CAP27 PO ×2 (12:03→12:20)
[2024-11-09] MEDS ORDERED: BUSP10TA31 PO (12:03)
[2024-11-09 12:30] VITALS: BP 105/81; PULSE 68; RESP 19; TEMP 97.6; O2SAT 96
[2024-11-09 14:33] VITALS: BP 105/81; PULSE 68; RESP 19; TEMP 97.6; O2SAT 96
--- NOTE | 2024-11-09 21:34 | DVHDS2 ---
Discharge Summary Date of Admission Nov 06, 2024 at 19:17 Date of Discharge: Nov 09, 2024 Labs/Diagnostic Data: Laboratory Results Test 11/09/24 12:36 11/09/24 06:20 11/08/24 06:33 11/07/24 20:29 POC Glucose 93 mg/dl (70-106) Sodium Level 140 mmol/L (136-145) Potassium Level 4.0 mmol/L (3.5-5.1) Chloride Level 109 mmol/L (98-107) Carbon Dioxide Level 21 mmol/L (20-31) Anion Gap 10 (5-15) Blood Urea Nitrogen 7 mg/dL (9-23) Creatinine 0.89 mg/dL (0.700-1.30) Glomerular Filtration Rate Calc 99 mL/min (>90) BUN/Creatinine Ratio 7.9 (10.0-20.0) Serum Glucose 112 mg/dL (74-106) Calcium Level 10.4 mg/dL (8.7-10.4) Magnesium Level 2.1 mg/dL (1.6-2.6) White Blood Count 8.9 10^3/uL (4.4-10.8) Red Blood Count 4.91 10^6/uL (4.5-5.90) Hemoglobin 15.8 g/dL (13.5-17.5) Hematocrit 45.9 % (41.0-53.0) Mean Corpuscular Volume 93.5 fL (80.0-100.0) Mean Corpuscular Hemoglobin 32.3 pg (28.0-32.0) Mean Corpuscular Hemoglobin Concent 34.5 g/dL (32.0-36.0) Red Cell Distribution Width 14.9 % (11.8-14.3) Platelet Count 244 10^3/uL (140-450) Mean Platelet Volume 7.9 fL (6.9-10.8) Neutrophils (%) (Auto) 52.1 % (37.0-80.0) Lymphocytes (%) (Auto) 35.9 % (10.0-50.0) Monocytes (%) (Auto) 6.9 % (0.0-12.0) Eosinophils (%) (Auto) 4.3 % (0.0-7.0) Basophils (%) (Auto) 0.8 % (0.0-2.0) Neutrophils # (Auto) 4.7 10 ^3/uL (1.6-8.6) Lymphocytes # (Auto) 3.2 10 ^3/uL (0.4-5.4) Monocytes # (Auto) 0.6 10 ^3/uL (0-1.3) Eosinophils # (Auto) 0.4 10 ^3/uL (0-0.8) Basophils # (Auto) 0.1 10 ^3/uL (0-0.2) Nucleated Red Blood Cells 0.1 % Phosphorus Level 3.3 mg/dL (2.4-5.1) Stool for White Cells Few Test 11/07/24 11:24 11/07/24 05:59 11/06/24 19:43 Urine Opiates Screen Neg (NEGATIVE) Urine Fentanyl Screen Neg (NEGATIVE) Urine Barbiturates Screen Neg (NEGATIVE) Urine Phencyclidine Screen Neg (NEGATIVE) Urine Amphetamines Screen Neg (NEGATIVE) Urine Benzodiazepines Screen Neg (NEGATIVE) Urine Cocaine Screen Neg (NEGATIVE) Urine Cannabinoids Screen Neg (NEGATIVE) Hemoglobin A1c 6.2 % A1C (<5.7) Triglycerides Level 126 mg/dL (< 150) Cholesterol Level 193 mg/dL (< 200) LDL Cholesterol 134 mg/dL (< 100) HDL Cholesterol 54 mg/dL (40-59) Thyroid Stimulating Hormone (TSH) 7.64 uIU/mL (0.55-4.78) Free Thyroxine (T4) Calculated 1.43 ng/dL (0.89-1.76) Free Triiodothyronine (T3) pg/mL 3.35 pg/mL (2.3-4.2) Troponin I High Sensitivity < 3 ng/L (</=54) Lipase 34 U/L (12-53) Other Laboratory Tests 11/09/24 06:20 11/08/24 06:33 Brief Hx & Hospital Course: 59 M with PTSD anxiety and afib on xarelto with 3 days of vomitting and diarrhea admitted for chest pain. Patient is dehydrated, reported eating questionable avocado prior to symptoms onset. Compliant with meds however no oral intake the past couple of days. echo nromal, rate controlled with oral meds. patient with anxiety given klonazepam PRN. stable to discharge home with OP cardio follow up. Condition at Discharge: Good Final Diagnosis/Problems List afib rvr Discharge Disposition: Home Discharge Instruct/Medications Diet: Cardiac 2g Na,low cholest Activity: No Restrictions, As Tolerated Follow Up/Referral: cardio PCP 46 Discharge Statement: "Patient was advised to return to the ER or call 911 if any headaches, dizziness, shortness of breath, chest pain, abdominal pain, bleeding, fevers, or worsening of medical condition. Patient was counseled about treatment plan, medications, possible side effects, patientverbalized understanding. All questions were answered to the best of my ability. This discharge took greater then 30 minutes in planning, reviewing documentation, counseling the patient, and discussing with other team members." ASSESSMENT ASSESSMENT Assessment Acute gastroenteritis, unknown etiology Afib with RVR 2/2 dehydration chest pain 2/2 afib PTSD anxiety disorder hypokalemia hypercalcemia euthyroid sick vs new hypothyroidism Date of Service: Nov 09, 2024 Billing Provider: DI JONES MD Common Visit Codes: 45763-JMX/OBS DISCH DAY >30min DI JONES MD Nov 09, 2024 21:34
== END 2024-11-09 15:30 | disposition home or self-care (01) | DRG 249 ==
LOC: EDBD 12:39 → ER 12:39 → TELE 19:17 → TELE-WESTW 11-07 17:48
PROVIDERS: ADMIT Student in an Organized Health Care Education/Training Program; ATTEND Student in an Organized Health Care Education/Training Program
DX: K52.9 Noninfective gastroenteritis and colitis, unspecified (principal); N17.0 Acute kidney failure with tubular necrosis; E03.9 Hypothyroidism, unspecified; E86.0 Dehydration; I48.91 Unspecified atrial fibrillation; E07.81 Sick-euthyroid syndrome; E11.9 Type 2 diabetes mellitus without complications; J45.909 Unspecified asthma, uncomplicated; E87.6 Hypokalemia; F43.10 Post-traumatic stress disorder, unspecified; E78.5 Hyperlipidemia, unspecified; E83.52 Hypercalcemia; F41.9 Anxiety disorder, unspecified; I10 Essential (primary) hypertension; F17.290 Nicotine dependence, other tobacco product, uncomplicated; Z79.01 Long term (current) use of anticoagulants
CPT/HCPCS: 36415; 71045; 74176; 80048; 80061; 80307; 82962; 83036; 83690; 83735; 84100; 84439; 84443; 84481; 84484; 85025; 85048; 87045; 87427; 93005; 93306; 99291; G0378; J1815

== ENCOUNTER 2024-11-09 18:01 | Emergency (ER) | payer MEDICAID ==
[~2024-11-09] VITALS: Ht 170.2 cm; Wt 82.0 kg
[~2024-11-09 18:01] MED LIST: ASPI-325 PO; ATOR20TA50 PO; BUSP10TA31 PO; CLON0.5T3 PO; DILT-102 PO; FAMO-12 PO; HYDR1CAP27 PO; RIVA20TA PO; TRAZ-227 PO
--- NOTE | 2024-11-09 18:48 | ED.PDOC ---
Psychiatric HPI Comments 59 Y M , presents to the ED with CC of mental health. Patient states, that he was D/C form [facility] today (11/09/24) Dx: Chest pain, etiology undetermined to an assisted living facility on parole. Patient relays, that at facility they were refusing him his medications and was told that he can return to the hospital if he would like. Patient denies SI or HI. Time Seen by MD: 18:30 Primary Care Provider: NONE Reviewed Notes: Nurses Notes, Medications, Allergies Information Source: Patient Mode of Arrival: Ambulatory Severity of Pain: None Severity of Mental Status: None Severity of Symptoms: None Timing: Minutes Duration: Since onset Presents with: None Ingestion: None Circumstance: None Current substance abuse: None History of: None Quality: None Location: None Location of pain or injury: None Associated signs and symptoms: None Past Medical History PAST MEDICAL HISTORY: DM Surgical History: Denies all surgeries Family History Family History: Unknown Social History Smoker: Other (VAPES) Alcohol: Denies ETOH Use Drugs: Denies Drug Use Lives In: Assisted Care Constitutional: denies: chills, diaphoresis, fatigue, fever, malaise, sweats, weakness, others EENTM: denies: blurred vision, double vision, ear bleeding, ear discharge, ear drainage, ear pain, ear ringing, eye pain, eye redness, hearing loss, mouth pain, mouth swelling, nasal discharge, nose bleeding, nose congestion, nose pain, photophobia, tearing, throat pain, throat swelling, voice changes, others Respiratory: denies: cough, hemoptysis, orthopnea, SOB at rest, shortness of breath, SOB with excertion, stridor, wheezing, others Cardiovascular: denies: chest pain, dizzy spells, diaphoresis, Dyspnea on exertion, edema, irregular heart beat, left arm pain, lightheadedness, palpitations, PND, syncope, others Gastrointestinal: denies: abdomen distended, abdominal pain, blood streaked bowels, constipated, diarrhea, dysphagia, difficulty swallowing, hematemesis, melena, nausea, poor appetite, poor fluid intake, rectal bleeding, rectal pain, vomiting, others Genitourinary: denies: burning, dysuria, flank pain, frequency, hematuria, incontinence, penile discharge, penile sore, pain, testicle pain, testicle swelling, urgency, others Neurological: denies: dizziness, fainting, headache, left sided numbness, left sided weakness, numbness, paresthesia, pre-existing deficit, right sided numbness, right sided weakness, seizure, speech problems, tingling, tremors, weakness, others Musculoskeletal: denies: back pain, gout, joint pain, joint swelling, muscle pain, muscle stiffness, neck pain, others Integumetry: denies: bruises, change in color, change in hair/nails, dryness, laceration, lesions, lumps, rash, wounds, others Allergic/Immunocompromised: denies: Difficulty Healing, Frequent Infections, Hives, Itching, others Endocrine: denies: excessive hunger, excessive sweating, excessive thirst, excessive urination, flushing, intolerance to cold, intolerance to heat, unexplained weight gain, unexplained weight loss, others Psychiatric: denies: anxiety, bipolar disorder, depression, hopeless, panic disorder, schizophrenia, sleepless, suicidal, others All Other Systems: Reviewed and Negative Physical Exam General Appearance: No Apparent Distress HEENT: Normal ENT Inspection, Pharynx Normal, TMs Normal Neck: Full Range of Motion, Non-Tender, Normal, Normal Inspection Respiratory: Chest Non-Tender, Lungs Clear, No Accessory Muscle Use, No Respiratory Distress, Normal Breath Sounds Cardiovascular: No Edema, No JVD, No Murmur, No Gallop, Normal Peripheral Pulses, Regular Rate/Rhythm Breast Exam: Deferred Gastrointestinal: No Organomegaly, Non Tender, No Pulsatile Mass, Normal Bowel Sounds, Soft Genitalia: Deferred Pelvic: Deferred Rectal: Deferred Extremities: No calf tenderness, Normal capillary refill, Normal inspection, Normal range of motion, Non-tender, No pedal edema Musculoskeletal : Apperance: Normal Neurologic: Alert, 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 Was a procedure done?: No Psych Differential Dx Psych. Differential Dx: Anxiety X-Ray, Labs, Meds, VS Vital Signs Date Time Temp Pulse Resp B/P (MAP) Pulse Ox O2 Delivery O2 Flow Rate FiO2 11/09/24 18:49 98.8 87 16 127/70 (89) 97 At this time, the patient was being discharged The patient will follow up with the primary care doctor The patient will return to the emergency department's condition worsens. Time of 1ST Reevaluation: 19:00 Reevaluation 1ST: Unchanged Patient Education/Counseling: Diagnosis, Treatment, Prognosis, Need For Follow Up Family Education/Counseling: No Family Present Departure 1 Departure Time of Disposition: 19:54 Impression: Primary Impression: Acute anxiety Disposition: 01 HOME / SELF CARE / HOMELESS Condition: Fair Discharged With: Self Critical Care Note Critical Care Time?: No Stability Stability form required: No Heart Score Heart Score: Heart Score Response (Comments) Value History N/A 0 EKG N/A 0 Age N/A 0 Risk Factors N/A 0 Troponin N/A 0 Total 0 I personally scribed for MARCIA HIGUERA MD ([email or web address]) on 11/09/24 at 18:48. Electronically submitted by Christin Sharp ([email or web address]). I personally scribed for MARCIA HIGUERA MD ([email or web address]) on 11/09/24 at 18:50. Electronically submitted by Christin Sharp ([email or web address]). MARCIA HIGUERA MD Nov 09, 2024 18:48
[2024-11-10 02:35] VITALS: BP 115/71; PULSE 76; RESP 18; TEMP 98.3; O2SAT 97
== END 2024-11-10 01:30 | disposition home or self-care (01) ==
LOC: ER 18:01
DX: F41.9 Anxiety disorder, unspecified (principal); E11.9 Type 2 diabetes mellitus without complications